=== PATIENT | female | born 1960 | race Caucasian/White ===

== ENCOUNTER 2018-06-12 15:36 | Emergency (ER) | payer MEDICARE ==
[~2018-06-12] VITALS: Ht 162.6 cm; Wt 77.1 kg
[2018-06-12] MEDS ORDERED: Hydrocodone-Ap1 EA23 PO (16:44)
[2018-06-12] MEDS ORDERED: Prednisone20 MG PO (17:04)
== END 2018-06-12 17:13 | disposition home or self-care (01) ==
LOC: ER 15:36
DX: T78.49XA Other allergy, initial encounter (principal); R21 Rash and other nonspecific skin eruption
CPT/HCPCS: 96372; 99282; J3301

== ENCOUNTER 2024-07-31 21:54 | Observation (INO) | payer MEDICARE ==
[~2024-07-31] VITALS: Ht 162.6 cm; Wt 87.5 kg
[~2024-07-31 21:54] MED LIST: Norco 5-325 Ta1 EACH PO; Prednisone20 MG PO
[2024-07-31 22:46] LABS: BASOPHILS ABSOLUTE AUTO 0.02 K/mm3 (0.00-0.23); BASOPHILS PERCENT AUTO 0 % (0-2); EOSINOPHILS ABSOLUTE AUTO 0.07 K/mm3 (0.00-0.68); EOSINOPHILS PERCENT AUTO 1 % (0-6); Hematocrit 36.2 % (33.0-51.0); Hemoglobin 12.5 g/dL (11.5-16.0); IMMATURE GRAN ABSOLUTE AUTO 0.05 K/mm3 (0.00-0.10); IMMATURE GRAN PERCENT AUTO 1 % (0-1); LYMPHOCYTES ABSOLUTE AUTO 2.06 K/mm3 (0.84-5.20); LYMPHOCYTES PERCENT AUTO 19 % (21-46); MONOCYTES ABSOLUTE AUTO 0.77 K/mm3 (0.16-1.47); MONOCYTES PERCENT AUTO 7 % (4-13); Mean Corpuscular HGB 30.6 pg (26.0-34.0); Mean Corpuscular HGB Conc 34.5 g/dL (31.5-36.5); Mean Corpuscular Volume 89 fL (80-100); NEUTROPHILS ABSOLUTE AUTO 8.12 K/mm3 (1.96-9.15); NEUTROPHILS PERCENT AUTO 73 % (41-73); RDW Coefficient Variation 12.9 % (11.7-14.2); Red Blood Cell Count 4.09 M/mm3 (3.80-5.20); White Blood Cell Count 11.09 K/mm3 (4.00-11.30)
[2024-07-31 22:49] LABS: Albumin, Blood 3.5 g/dL (3.4-5.0); Bilirubin, Total 0.4 mg/dL (0.1-1.0); Bun/Creatinine Ratio 29.6 (12.0-20.0); Calcium, Blood 9.3 mg/dL (8.5-10.1); Creatinine, Blood 0.71 mg/dL (0.40-1.00); Globulin, Blood 3.4 g/dL (2.2-4.0); Potassium, Blood 3.6 mmol/L (3.5-5.5); Total Protein, Blood 6.9 g/dL (6.4-8.2)
[2024-07-31 23:03] LABS: Platelet Count 312 K/mm3 (150-400)
[2024-07-31 23:16] LABS: Magnesium, Blood 2.1 mg/dL (1.6-2.4)
[2024-08-01 00:08] LABS: Influenza A, PCR NEGATIVE (NEGATIVE); Influenza B, PCR NEGATIVE (NEGATIVE); Resp Syncytial Virus, PCR NEGATIVE (NEGATIVE); SARS-Cov-2 (COVID-19) PCR, MMC NEGATIVE (NEGATIVE)
[2024-08-01] MEDS ORDERED: NS 1,000 ML IV ONE (01:30)
[2024-08-01] MEDS ORDERED: FentaNYL Citrate 50 MCG/ML 2 ML Injection IV PRN (01:30)
[2024-08-01] MEDS ORDERED: Ondansetron HCl 2 MG / ML 2ML Vial IV PRN (01:30)
[2024-08-01] MEDS ORDERED: Mag Hydrox/Al Hydrox/Simeth 72 ML,Lidocaine 2% Viscous Soln 36 ML,Atropine/Scopalam/Hyo... PO PRN (02:10)
[2024-08-01 02:48] VITALS: BP 131/74
[2024-08-01] MEDS ORDERED: Prinivil10 MG PO (02:59)
[2024-08-01] MEDS ORDERED: PREGABALIN75 MG PO (03:00)
[2024-08-01] MEDS ORDERED: Nitroglycerin 0.4 MG SUBL SL PRN (03:30)
[2024-08-01] MEDS ORDERED: HYDROcodone 5-APAP 325 TAB PO PRN (06:10)
[2024-08-01 07:24] VITALS: BP 137/78
[2024-08-01 08:50] LABS: BASOPHILS ABSOLUTE AUTO 0.03 K/mm3 (0.00-0.23); BASOPHILS PERCENT AUTO 1 % (0-2); EOSINOPHILS ABSOLUTE AUTO 0.14 K/mm3 (0.00-0.68); EOSINOPHILS PERCENT AUTO 2 % (0-6); Hematocrit 36.7 % (33.0-51.0); Hemoglobin 12.3 g/dL (11.5-16.0); IMMATURE GRAN ABSOLUTE AUTO 0.02 K/mm3 (0.00-0.10); IMMATURE GRAN PERCENT AUTO 0 % (0-1); LYMPHOCYTES ABSOLUTE AUTO 2.26 K/mm3 (0.84-5.20); LYMPHOCYTES PERCENT AUTO 34 % (21-46); MONOCYTES ABSOLUTE AUTO 0.51 K/mm3 (0.16-1.47); MONOCYTES PERCENT AUTO 8 % (4-13); Mean Corpuscular HGB 30.1 pg (26.0-34.0); Mean Corpuscular HGB Conc 33.5 g/dL (31.5-36.5); Mean Corpuscular Volume 90 fL (80-100); Mean Platelet Volume 9.3 fL (9.1-12.4); NEUTROPHILS PERCENT AUTO 56 % (41-73); Platelet Count 278 K/mm3 (150-400); RDW Coefficient Variation 12.8 % (11.7-14.2); RDW Standard Deviation 42.3 fL (35.1-46.3); Red Blood Cell Count 4.09 M/mm3 (3.80-5.20); White Blood Cell Count 6.66 K/mm3 (4.00-11.30)
[2024-08-01] MEDS ORDERED: Enoxaparin 40 MG/0.4 ML SYR SC SCH (09:00)
[2024-08-01] MEDS ORDERED: Lisinopril 10 MG Tab PO SCH (09:00)
[2024-08-01] MEDS ORDERED: Pregabalin 75 MG Cap PO SCH (09:00)
[2024-08-01 09:12] LABS: Albumin, Blood 3.4 g/dL (3.4-5.0); Albumin/Globulin Ratio 1.1 (0.8-1.8); Bun/Creatinine Ratio 22.9 (12.0-20.0); Calcium, Blood 9.1 mg/dL (8.5-10.1); Creatinine, Blood 0.7 mg/dL (0.40-1.00); Globulin, Blood 3.1 g/dL (2.2-4.0); Potassium, Blood 4.1 mmol/L (3.5-5.5); Total Protein, Blood 6.5 g/dL (6.4-8.2)
[2024-08-01 09:59] VITALS: BP 137/77
[2024-08-01] MEDS ORDERED: Caffeine Citrated 60 MG/3 ML Vial ONE (14:15)
[2024-08-01] MEDS ORDERED: Regadenoson 0.4 MG/5 ML SYRINGE ONE (14:16)
[2024-08-01 15:20] VITALS: BP 141/81
[2024-08-01 19:07] VITALS: BP 129/80
--- NOTE | 2024-08-01 19:59 | NUR ---
SHIFT SUMMARY- PT IS ALERT AND ORIENTED. SHE HAD THE FIRST HALF OF HER STRESS TEST TODAY. SECOND HALF IS TOMORROW MORNING. PT NPO AT MIDNIGHT EXCEPT FOR WATER. SHE CAN HAVE WATER. PT IN BED, CALL LIGHT IN REACH AND SHE CALLS APPROPRIATELY. NO S&S OF DISTRESS AT THE TIME OF BEDSIDE REPORT.
[2024-08-02 03:03] VITALS: BP 114/64
--- NOTE | 2024-08-02 03:56 | NUR ---
SHIFT SUMMARY PT IS PLEASANT, A&O X4, ABLE TO MAKE HER NEEDS KNOWN. PT DENIES PAIN AND DISCOMFORT, N/V, OR SOB. PT ALSO DENIES NUMBNESS OR TINGLING DURING THIS SHIFT. NO ACUTE EVENTS T/O THE NIGHT HRS. PT RESTING T/O THIS SHIFT, RR EVEN, UNLABORED. BED AT THE LOWEST POSITION, CALL LIGHT WITHIN REACH.
[2024-08-02 07:02] VITALS: BP 125/81
[2024-08-02] MEDS ORDERED: PREG75 PO (11:39)
--- NOTE | 2024-08-02 14:35 | NUR ---
DISCHARGE NOTE- PT WAS DISCHARGED HOME. IV AND TELE WERE DC'D PRIOR TO PT DISCHARGE. PT WAS GIVEN VERBAL AND WRITTEN DISCHARGE INSTRUCTIONS AND ACKNOWLEDGED UNDERSTANDING OF THEM. PT DECLINED WC AND WALKED OUT WITH THE [employer]. NO S&S OF DISTRESS NOTED AT THE TIME OF DISCHARGE.
== END 2024-08-02 12:45 | disposition home or self-care (01) ==
LOC: ER 21:54 → MEDS 21:55 → ENPENDDIS 08-02 11:14 → MEDS 08-02 12:45
PROVIDERS: Emergency Medicine; Student in an Organized Health Care Education/Training Program; ADMIT Internal Medicine
DX: R07.89 Other chest pain (principal); R25.1 Tremor, unspecified; I95.9 Hypotension, unspecified; I45.10 Unspecified right bundle-branch block; G89.29 Other chronic pain; M54.9 Dorsalgia, unspecified; Z88.1 Allergy status to other antibiotic agents; Z88.8 Allergy status to other drugs, medicaments and biological substances; Z79.899 Other long term (current) drug therapy
CPT/HCPCS: 0241U; 36415; 70450; 71046; 78452; 80053; 83735; 83880; 84484; 85025; 93005; 93010; 93017; 93306; 96372; 99285-25; A9270; A9500; G0378; J0706; J1650; J2785; J7030